=== PATIENT | female | born 2000 | race Native Hawaiian/Other Pacific Islander ===

== ENCOUNTER 2023-12-29 20:18 | Emergency (ER) | payer OTHER ==
[~2023-12-29] VITALS: Ht 157.5 cm; Wt 78.2 kg
[2023-12-29 21:02] LABS: BASO % 0.2 % (0.0-1.0); EOS # 0.2 10^3/uL (0.0-0.5); HEMATOCRIT 45.1 % (36.0-47.0); HEMOGLOBIN 15.4 g/dl (12.0-15.5); LYMPH # 2.6 10^3/uL (1.5-5.0); LYMPH % 17.1 % (24.0-44.0); MEAN CORPUSCULAR HEMOGLOBIN 29.4 pg (27.0-33.0); MEAN CORPUSCULAR HGB CONC 34.1 g/dl (32.0-36.5); MEAN CORPUSCULAR VOLUME 86.2 fl (80.0-96.0); MONO # 0.8 10^3/uL (0.0-0.8); MONO % 5.1 % (2.0-8.0); NEUTROPHILS # 11.4 10^3/uL (1.5-8.5); NEUTROPHILS % 76.1 % (36.0-66.0); PLATELET COUNT, AUTOMATED 297 10^3/uL (150-450); RED BLOOD COUNT 5.23 10^6/uL (4.00-5.40)
[2023-12-29 21:06] LABS: ERYTHROCYTE SEDIMENTATION RATE 66 mm/hr (0-20)
[2023-12-29 21:26] LABS: C REACTIVE PROTEIN QUANTITATIV 2.3 MG/DL (<1.0); MAGNESIUM LEVEL 1.8 MG/DL (1.8-2.4)
[2023-12-30] MEDS ORDERED: AMOX875T2 PO (00:37)
[2023-12-30] MEDS: AUGMENTIN 875 MG TAB PO ONE (00:47)
[2023-12-30 00:52] VITALS: BP 126/58; TEMP 98.5; O2SAT 100
== END 2023-12-30 00:54 | disposition home or self-care (01) ==
LOC: M ED 20:18
DX: J01.20 Acute ethmoidal sinusitis, unspecified (principal); Z79.2 Long term (current) use of antibiotics

== ENCOUNTER 2024-11-27 23:51 | Emergency (ER) | payer OTHER ==
[~2024-11-27] VITALS: Ht 157.5 cm; Wt 87.2 kg
[~2024-11-27 23:51] MED LIST: AMOX875T2 PO
[2024-11-28 04:17] LABS: BASO % 0.2 % (0.0-1.0); EOS # 0.1 10^3/uL (0.0-0.5); EOS % 0.8 % (0.0-3.0); HEMATOCRIT 43.5 % (36.0-47.0); HEMOGLOBIN 15.3 g/dl (12.0-15.5); LYMPH # 3.1 10^3/uL (1.5-5.0); LYMPH % 24.9 % (24.0-44.0); MEAN CORPUSCULAR HEMOGLOBIN 29.7 pg (27.0-33.0); MEAN CORPUSCULAR HGB CONC 35.2 g/dl (32.0-36.5); MEAN CORPUSCULAR VOLUME 84.3 fl (80.0-96.0); MONO # 0.5 10^3/uL (0.0-0.8); NEUTROPHILS # 8.5 10^3/uL (1.5-8.5); NEUTROPHILS % 69.9 % (36.0-66.0); PLATELET COUNT, AUTOMATED 263 10^3/uL (150-450); RED BLOOD COUNT 5.16 10^6/uL (4.00-5.40); WHITE BLOOD COUNT 12.2 10^3/uL (4.0-10.0)
[2024-11-28 04:49] LABS: HCG, SERUM QUALITATIVE NEGATIVE (NEGATIVE)
[2024-11-28 04:55] LABS: ALBUMIN 3.9 G/DL (3.2-5.2); ALKALINE PHOSPHATASE 167 U/L (35-104); ALT/SGPT 26 U/L (7.0-40); AST/SGOT 13 U/L (<34); BILIRUBIN,TOTAL 0.5 MG/DL (0.3-1.2); BLOOD UREA NITROGEN < 5 MG/DL (9-23); CALCIUM LEVEL 9.1 MG/DL (8.5-10.1); CARBON DIOXIDE LEVEL 24 MMOL/L (20-31); CHLORIDE LEVEL 106 MMOL/L (98-107); CREATININE FOR GFR 0.66 MG/DL (0.55-1.30); GLOMERULAR FILTRATION RATE > 60.0 (>60); GLUCOSE, FASTING 106 MG/DL (60-100); SODIUM LEVEL 141 MMOL/L (136-145); TOTAL PROTEIN 7.6 G/DL (5.7-8.2)
[2024-11-28 06:33] LABS: THYROID STIMULATING HORMONE 2.083 uIU/ML (0.55-4.78)
[2024-11-28 07:00] VITALS: BP 110/84; TEMP 98.2; O2SAT 98
== END 2024-11-28 07:12 | disposition home or self-care (01) ==
LOC: M ED 23:51
DX: R42 Dizziness and giddiness (principal); Z79.2 Long term (current) use of antibiotics